=== PATIENT | male | born 1995 | race Two or more races ===

== ENCOUNTER 2021-03-20 22:44 | Emergency (ER) | payer SELFPAY ==
[~2021-03-20] VITALS: Ht 177.8 cm; Wt 73.0 kg
[2021-03-20] MEDS ORDERED: ACETAMINOPHEN 325MG TABLET PO ONE (23:45)
[2021-03-21 01:00] VITALS: BP 125/71
== END 2021-03-21 01:00 ==
LOC: ER 22:44 → EDBD 22:44 → ER 03-21 01:00
DX: S09.8XXA Other specified injuries of head, initial encounter (principal); S20.219A Contusion of unspecified front wall of thorax, initial encounter; V49.49XA Driver injured in collision with other motor vehicles in traffic accident, initial encounter; Y93.89 Activity, other specified; Y92.89 Other specified places as the place of occurrence of the external cause; Y99.8 Other external cause status; R56.9 Unspecified convulsions
CPT/HCPCS: 99284